=== PATIENT | male | born 1950 | race Caucasian/White ===

== ENCOUNTER 2020-12-15 08:54 | Outpatient (CLI) | payer MEDICARE ==
[2020-12-15] MEDS ORDERED: Sodium Bicarbonate 2.5 MEQ/5 ML VIAL ONE (09:11)
[2020-12-15] MEDS ORDERED: Lidocaine 1% PF 5 ML VIAL ONE ×2 (09:11→09:12)
[2020-12-15] MEDS ORDERED: EPINEPHrine 1 MG/ML AMP ONE (09:12)
[2020-12-15 09:39] VITALS: BP 144/70; TEMP 97.8
== END 2020-12-15 10:45 | disposition home or self-care (01) ==
LOC: CSHRAD 08:54
PROVIDERS: ATTEND Orthopaedic Surgery
DX: M75.42 Impingement syndrome of left shoulder (principal); M19.012 Primary osteoarthritis, left shoulder; S46.812A Strain of other muscles, fascia and tendons at shoulder and upper arm level, left arm, initial encounter
CPT/HCPCS: 23350; J0171

== ENCOUNTER 2021-10-20 14:16 | Outpatient (CLI) | payer MEDICARE | END 2021-10-20 14:17 | disposition home or self-care (01) | LOC: CSHMRI 14:16 | PROVIDERS: ATTEND Orthopaedic Surgery Orthopaedic Surgery of the Spine | DX: M48.062 Spinal stenosis, lumbar region with neurogenic claudication (principal); Z98.890 Other specified postprocedural states; M47.816 Spondylosis without myelopathy or radiculopathy, lumbar region | CPT/HCPCS: 72148 ==